=== PATIENT | male | born 1990 | race Caucasian/White ===

== ENCOUNTER 2016-09-05 16:18 | Emergency (ER) | payer OTHER ==
[2016-09-05 16:27] VITALS: O2SAT 98
[2016-09-05] MEDS ORDERED: Sodium Chloride 0.9% 1000 ML 1,000 ML IV STA (16:41)
[2016-09-05] MEDS ORDERED: Phenergan 25 MG INJ IV ONE (16:41)
[2016-09-05] MEDS ORDERED: Sodium Chloride 0.9% 1000 ML 1,000 ML ONE (16:42)
[2016-09-05] MEDS ORDERED: ANTIVERT 25 MG PO ONE (16:42)
[2016-09-05] MEDS ORDERED: Phenergan 25 MG INJ ONE (16:42)
[2016-09-05] MEDS ORDERED: Transderm Scop 1.5MG Patch TOP ONE (16:42)
[2016-09-05 16:48] LABS: BASOPHIL % 0.2 % (0.0-0.4); Eosinophil % 5.9 % (0.00-5.0); Granulocytes % 52.1 % (36.0-66.0); Lymphocytes % 32.8 % (24.0-44.0); Mean Cell Volume 88.8 fl (78-100); Mean Corpuscular Hemoglobin 30.2 pg (26-32); Mean Platelet Volume 10.3 fl (6-9.5); Platelet Count 249 K/mm3 (150-450); Red Cell Distribution Width 13.1 % (11.5-14.0); White Blood Count 6.3 K/mm3 (4.0-10.5)
--- NOTE | 2016-09-05 16:48 | ERPHSYRPT ---
- History of Present Illness Time Seen by Provider: 09/05/16 16:19 Source: patient Exam Limitations: no limitations Patient Subjective Stated Complaint: PT REPORTS VOMITING SINCE LAST NIGHT- DENIES DIARRHEA-DENIES FEVER-STATES THAT HE CAN NOT KEEP ANYTHING DOWN Triage Nursing Assessment: PT PALE WARM ET DRY-A & O X 3-ABD SOFT ET NONTENDER TO PLAP-RESP NONLABORED Physician History: patient awoke this morning with symptoms of acute vertigo associated with nausea and vomiting.no recent head trauma or travel; no flying or diving; no fever or chills; fullness in his ears but no ringing; emesis is clear; no diarrhea; hasn't been exposed to any known illnesses; no recent drug usage; symptoms exacerbated by moving his head horizontal or changing position Timing/Duration: today, hour(s) (6) Severity: severe Modifying Factors: Improves With: immobilization (helps), movement (aggravates) Associated Symptoms: nausea, vomiting, loss of appetite, other (acute vertigo) Allergies/Adverse Reactions: No Known Drug Allergies Allergy (Verified 09/05/16 16:27) Home Medications: No Home Meds 1 ea UD 09/05/16 [History] Hx Tetanus, Diphtheria Vaccination/Date Given: Yes Hx Influenza Vaccination/Date Given: No Hx Pneumococcal Vaccination/Date Given: No Immunizations Up to Date: Yes - Review of Systems Constitutional: No Symptoms Eyes: No Symptoms Ears, Nose, & Throat: Other (fullness in the ears), No Ear Pain, No Hearing Changes, No Tinnitus, No Epistaxis, No Throat Pain Respiratory: No Cough, No Dyspnea, No Wheezing Cardiac: No Chest Pain, No Palpitations, No Syncope Abdominal/Gastrointestinal: Nausea, Vomiting, No Abdominal Pain, No Diarrhea Genitourinary Symptoms: No Symptoms Musculoskeletal: No Symptoms Skin: No Symptoms Neurological: Dizziness, Vertigo, No Focal Weakness, No Headache, No Paralysis, No Parasthesia Psychological: No Symptoms Endocrine: No Symptoms Hematologic/Lymphatic: No Symptoms Immunological/Allergic: No Symptoms - Past Medical History Pertinent Past Medical History: Yes Neurological History: Migraines ENT History: No Pertinent History Cardiac History: No Pertinent History Respiratory History: Asthma Endocrine Medical History: No Pertinent History Musculoskeletal History: No Pertinent History GI Medical History: No Pertinent History - Past Surgical History Past Surgical History: No Neuro Surgical History: No Pertinent History Cardiac: No Pertinent History Respiratory: No Pertinent History Gastrointestinal: No Pertinent History Genitourinary: No Pertinent History Musculoskeletal: Orthopedic Surgery Male Surgical History: No Pertinent History Other Surgical History: WATER SAC REMOVED FROM RT LEG - Social History Smoking Status: Current every day smoker How long have you smoked: 11 Exposure to second hand smoke: Yes Alcohol Use: Socially Drug Use: none Patient Lives Alone: No Significant Family History: no pertinent family hx - Nursing Vital Signs Nursing Vital Signs: Initial Vital Signs Temperature 97.3 F Temperature Source Oral Pulse Rate 59 Respiratory Rate 20 Blood Pressure [Right Arm] 128/78 Pain Intensity 6 - Physical Exam General Appearance: moderate distress, alert, thin Eye Exam: PERRL/EOMI, eyes nml inspection, other (no nystagmus; fundi benign), No photophobia Ears, Nose, Throat Exam: normal ENT inspection, TMs normal, pharynx normal, moist mucous membranes Neck Exam: normal inspection, non-tender, supple, full range of motion, other ( symptoms of vertigo exacerbated by horizontal motion of the head), No meningismus, No carotid bruit, No JVD Respiratory Exam: normal breath sounds, lungs clear, airway intact, No chest tenderness, No respiratory distress Cardiovascular Exam: regular rate/rhythm, normal heart sounds, normal peripheral pulses, capillary refill <2 sec, No murmur Gastrointestinal/Abdomen Exam: soft, normal bowel sounds, No tenderness, No distention, No mass, No guarding, No rebound, No organomegaly Rectal Exam: deferred Back Exam: normal inspection, normal range of motion, No CVA tenderness Extremity Exam: normal inspection, normal range of motion, No ronny's sign, No pedal edema Neurologic Exam: alert, oriented x 3, cooperative, 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, normal mood/affect, nml cerebellar function, nml station & gait Skin Exam: normal color, warm, dry, No rash SpO2 Interpretation: normal SpO2: 98 Oxygen Delivery: Room Air - Course Nursing assessment & vital signs reviewed: Yes Ordered Tests: Active Orders 24 hr Category Date Time Status IV Insertion STAT Care 09/05/16 16:41 Active NPO (ED) STAT Care 09/05/16 16:41 Active Re-Check Vital Signs STAT Care 09/05/16 16:41 Active BMP Stat Lab 09/05/16 16:30 Completed CBC W DIFF Stat Lab 09/05/16 16:30 Completed Medication Summary Generic Name Dose Route Start Last Admin Trade Name Mesfin PRN Reason Stop Dose Admin Sodium Chloride 1,000 mls @ 999 mls/hr 09/05/16 16:41 09/05/16 16:47 Sodium Chloride 0.9% 1000 Ml IV 09/05/16 17:41 999 mls/hr .Q1H1M STA Administration Discontinued Medications Generic Name Dose Route Start Last Admin Trade Name Mesfin PRN Reason Stop Dose Admin Sodium Chloride Confirm 09/05/16 16:42 Sodium Chloride 0.9% 1000 Ml Administered 09/05/16 16:43 Dose 1,000 mls @ ud .ROUTE .STK-MED ONE Meclizine HCl 25 mg 09/05/16 16:42 09/05/16 16:57 Antivert 25 Mg PO 09/05/16 16:43 25 mg STAT ONE Administration Meclizine HCl Confirm 09/05/16 16:56 Antivert 25 Mg Administered 09/05/16 16:57 Dose 25 mg .ROUTE .STK-MED ONE Promethazine HCl 12.5 mg 09/05/16 16:41 09/05/16 16:47 Phenergan 25 Mg Inj IV 09/05/16 16:42 12.5 mg STAT ONE Administration Promethazine HCl Confirm 09/05/16 16:42 Phenergan 25 Mg Inj Administered 09/05/16 16:43 Dose 25 mg .ROUTE .STK-MED ONE Scopolamine HBr 1.5 mg 09/05/16 16:42 09/05/16 16:47 Transderm Scop 1.5mg Patch TOP 09/05/16 16:43 1.5 mg STAT ONE Administration Lab/Rad Data: Laboratory Result Diagrams 09/05/16 16:30 09/05/16 16:30 Laboratory Results 09/05/16 09/05/16 Range/Units 16:30 16:30 WBC 6.3 (4.0-10.5) K/mm3 RBC 4.80 (4.1-5.6) M/mm3 Hgb 14.5 (12.5-18.0) gm/dl Hct 42.6 (42-50) % MCV 88.8 (78-100) fl MCH 30.2 (26-32) pg MCHC 34.0 (32-36) g/dl RDW 13.1 (11.5-14.0) % Plt Count 249 (150-450) K/mm3 MPV 10.3 H (6-9.5) fl Gran % 52.1 (36.0-66.0) % Lymphocytes % 32.8 (24.0-44.0) % Monocytes % 9.0 (0.0-12.0) % Eosinophils % 5.9 H (0.00-5.0) % Basophils % 0.2 (0.0-0.4) % Basophils # 0.01 (0-0.4) Sodium 140 (136-145) mEq/L Potassium 3.7 (3.5-5.1) mEq/L Chloride 103 (98-107) mEq/L Carbon Dioxide 25.1 (21-32) mEq/L Anion Gap 15.8 H (5-15) MEQ/L BUN 11 (9-20) mg/dL Creatinine 1.15 (0.55-1.30) mg/dl Estimated GFR > 60 ML/MIN Glucose 102 (70-110) MG/DL Calcium 9.0 (8.5-10.1) mg/dL reviewed - Progress Progress: improved (after meds), re-examined (After IV fluids and medications) Progress Note: 09/05/16 16:48 IV started, meds given; labs drawn; will push fluids and recheck 09/05/16 17:07 rechecked adn N&V resolved; vertigo improving; able to take PO meds and fluids and keep down; cbc wnl; will monitor; continue IV fluids and recheck 09/05/16 17:20 patient rechecked and sleeping; easily aroused and now able to sit up and move head rapidly horizontally without symptoms; he has had 500 cc IV fluids; will continue IV fluids and recheck 09/05/16 17:33 patient continues to do well; treatment plan and instructions given; Counseled pt/family regarding: lab results, diagnosis, need for follow-up - Departure Time of Disposition: 17:45 Departure Disposition: Home Clinical Impression: Acute onset of vertigo with vomiting and inability to stand Condition: Stable Critical Care Time: No Referrals: DOCTOR,NO FAMILY [NON-STAFF PHY W/O PRIVILEGES] - Instructions: Vertigo Additional Instructions: rest; wear TDS patch behind ear for three (3) days; take antivert as needed; avoid sudden movements; encourage fluid hydration Follow-up with family doctor as directed. Call for appointment. Return if any problems. If you smoke please stop. Call or follow up with your family doctor for assistance if you need it to stop. Please wear your seatbelt when driving. Have a nice day. Thank you for allowing us to participate in your care today. :o) Dr David Reddy Prescriptions: Meclizine HCl 25 mg [Antivert 25 mg] 25 mg PO Q8H PRN PRN #14 tablet PRN Reason: Dizziness Ondansetron [Zofran Odt] 4 mg PO Q6-8HPRN PRN #10 tab.rapdis PRN Reason: Nausea
[2016-09-05] MEDS ORDERED: ANTIVERT 25 MG ONE (16:56)
[2016-09-05 17:11] VITALS: BP 128/78; PULSE 59
[2016-09-05 17:11] LABS: ANION GAP 15.8 MEQ/L (5-15); BLOOD UREA NITROGEN 11 mg/dL (9-20); CHLORIDE 103 mEq/L (98-107); Carbon Dioxide 25.1 mEq/L (21-32); Glucose 102 MG/DL (70-110); Potassium 3.7 mEq/L (3.5-5.1); SODIUM 140 mEq/L (136-145)
== END 2016-09-05 17:55 | disposition home or self-care (01) ==
LOC: ED 16:18
DX: R42 Dizziness and giddiness (principal); R11.2 Nausea with vomiting, unspecified; R26.89 Other abnormalities of gait and mobility
CPT/HCPCS: 36000; 36415; 80048; 85025; 96360; 96374; 99283; 99284; J2550

== ENCOUNTER 2017-10-21 15:22 | Emergency (ER) | payer SELFPAY ==
[2017-10-21] MEDS ORDERED: Sodium Chloride 0.9% 1000 ML 1,000 ML IV STA (15:38)
[2017-10-21] MEDS ORDERED: DUONEB 0.5-3 MG/3 ml Neb IH ONE ×2 (15:38→16:07)
[2017-10-21] MEDS ORDERED: TORAdol 30 mg Injection IV ONE (15:39)
--- NOTE | 2017-10-21 15:43 | ERPHSYRPT ---
- History of Present Illness Time Seen by Provider: 10/21/17 15:40 Source: patient Patient Subjective Stated Complaint: pt reports sore throat all over body aches unknown fever cough since thursday-states that he has been taking thera flu since thursday Triage Nursing Assessment: pt pink warm and [id number] easy and nonlabored- nasal drainage noted during triage-speaking in complete sentences with ease-no sob noted with ambulation Physician History: mild diffuse aches and fatigue since Thursday, nonproductive cough, no fever, no lethargy, speech fluent Allergies/Adverse Reactions: No Known Drug Allergies Allergy (Verified 10/21/17 15:36) Home Medications: No Home Meds [No Home Meds] 1 ea UD 09/05/16 [History] Hx Tetanus, Diphtheria Vaccination/Date Given: Yes Hx Influenza Vaccination/Date Given: No Hx Pneumococcal Vaccination/Date Given: No Immunizations Up to Date: Yes - Review of Systems Constitutional: Fatigue, Malaise, No Fever, No Lethargy Eyes: No Vision Changes Ears, Nose, & Throat: Throat Pain Respiratory: Cough, No Cyanosis, No Dyspnea, No Stridor, No Wheezing Cardiac: No Chest Pain Abdominal/Gastrointestinal: No Symptoms Musculoskeletal: No Back Pain, No Neck Pain Skin: No Rash, No Dryness - Past Medical History Pertinent Past Medical History: Yes Neurological History: Migraines ENT History: No Pertinent History Cardiac History: No Pertinent History Respiratory History: Asthma Endocrine Medical History: No Pertinent History Musculoskeletal History: No Pertinent History GI Medical History: No Pertinent History - Past Surgical History Past Surgical History: No Neuro Surgical History: No Pertinent History Cardiac: No Pertinent History Respiratory: No Pertinent History Gastrointestinal: No Pertinent History Genitourinary: No Pertinent History Musculoskeletal: Orthopedic Surgery Male Surgical History: No Pertinent History Other Surgical History: WATER SAC REMOVED FROM RT LEG - Social History Smoking Status: Current every day smoker How long have you smoked: 11 Exposure to second hand smoke: Yes Alcohol Use: Socially Drug Use: none Patient Lives Alone: No Significant Family History: no pertinent family hx - Nursing Vital Signs Nursing Vital Signs: Initial Vital Signs Temperature 98.1 F 10/21/17 15:29 Pulse Rate 94 H 10/21/17 15:29 Respiratory Rate 16 10/21/17 15:29 Blood Pressure 137/96 10/21/17 15:29 O2 Sat by Pulse Oximetry 99 03/21/18 15:29 Pain Scale Pain Intensity 3 - Physical Exam General Appearance: no apparent distress Eye Exam: PERRL/EOMI Ears, Nose, Throat Exam: pharyngeal erythema Neck Exam: normal inspection, other (no stridor, no peritonsillar mass) Respiratory Exam: normal breath sounds, No respiratory distress Cardiovascular/Chest Exam: regular rate/rhythm Abdominal/Gastrointestinal Exam: soft Extremity Exam: normal range of motion Neurologic Exam: alert, oriented x 3, cooperative Skin Exam: warm, dry SpO2 Interpretation: normal SpO2: 99 Oxygen Delivery: Room Air - Course Nursing assessment & vital signs reviewed: Yes Ordered Tests: Active Orders 24 hr Category Date Time Status IV Insertion STAT Care 10/21/17 15:38 Active Respiratory Nebulizer STAT RT 10/21/17 15:39 Completed Medication Summary Discontinued Medications Generic Name Dose Route Start Last Admin Trade Name Freq PRN Reason Stop Dose Admin Albuterol/Ipratropium 3 ml 10/21/17 15:38 10/21/17 16:15 Duoneb 0.5-3 Mg/3 Ml Neb IH 10/21/17 15:39 3 ml STAT ONE Administration Albuterol/Ipratropium Confirm 10/21/17 16:07 Duoneb 0.5-3 Mg/3 Ml Neb Administered 10/21/17 16:08 Dose 3 ml IH .STK-MED ONE Sodium Chloride 1,000 mls @ 999 mls/hr 10/21/17 15:38 10/21/17 16:05 Sodium Chloride 0.9% 1000 Ml IV 10/21/17 16:38 999 mls/hr .Q1H1M STA Administration Sodium Chloride Confirm 10/21/17 16:03 Sodium Chloride 0.9% 1000 Ml Administered 10/21/17 16:04 Dose 1,000 mls @ ud .ROUTE .STK-MED ONE Ketorolac Tromethamine 30 mg 10/21/17 15:39 10/21/17 16:05 Toradol 30 Mg Injection IV 10/21/17 15:40 30 mg STAT ONE Administration Ketorolac Tromethamine Confirm 10/21/17 16:03 Toradol 30 Mg Injection Administered 10/21/17 16:04 Dose 30 mg .ROUTE .STK-MED ONE - Progress Progress: improved Air Movement: good Progress Note: 10/21/17 16:39 zpak, see your doctor, or workers compensation attorney Dr Huang, return if worse, motrin, oral fluids , rest, proventil inhaler Discussed with : Delbert Counseled pt/family regarding: diagnosis, need for follow-up - Departure Time of Disposition: 16:40 Departure Disposition: Home Clinical Impression: Bronchitis Condition: Stable Critical Care Time: No Referrals: GARRY HUANG MD [Primary Care Provider] - Instructions: Acute Bronchitis Prescriptions: Albuterol Sulfate [Albuterol Sulfate Hfa] 8.5 gm IH Q6H PRN PRN #1 [id number] PRN Reason: Shortness Of Breath Azithromycin 250 mg [Zithromax 250 MG TABLET] 250 mg PO ZPACK #6 tablet
[2017-10-21] MEDS ORDERED: Sodium Chloride 0.9% 1000 ML 1,000 ML ONE (16:03)
[2017-10-21] MEDS ORDERED: TORAdol 30 mg Injection ONE (16:03)
[2017-10-21 16:42] VITALS: BP 128/83; PULSE 90
[2017-10-21 16:44] VITALS: O2SAT 99
== END 2017-10-21 16:59 | disposition home or self-care (01) ==
LOC: ED 15:22
DX: J40 Bronchitis, not specified as acute or chronic (principal)
CPT/HCPCS: 36000; 94150; 94640; 96360; 96374; 99284; J1885; A9270-GY

== ENCOUNTER 2021-05-19 20:57 | Emergency (ER) | payer OTHER ==
[2021-05-19] MEDS ORDERED: XYLOCAINE VISCOUS 2% 20 ML CUP PO ONE (21:36)
[2021-05-19] MEDS ORDERED: AMOXIL 500 MG PO ONE (21:37)
[2021-05-19] MEDS ORDERED: Naprosyn 500 MG PO ONE (21:38)
[2021-05-19 21:45] VITALS: O2SAT 98
--- NOTE | 2021-05-19 21:45 | ERPHSYRPT ---
- History of Present Illness Time Seen by Provider: 05/19/21 21:40 Source: patient Exam Limitations: no limitations Physician History: Patient is a 30-year-old white male who presents with a complaint of dental pain on and off for a year from a left mandibular molar which is decayed to the gumline and right maxillary molar which is partially missing. He has been unable to eat because of pain and complains of swelling in both jaws. He does not have a dental appointment. Timing/Duration: intermittent Severity: severe ENT Location: mouth, dental Prearrival Treatment: no prearrival treatment Modifying Factors: Improves With: nothing Associated Symptoms: facial pain/swelling, jaw pain, tooth pain Allergies/Adverse Reactions: No Known Drug Allergies Allergy (Verified 05/19/21 21:35) Hx Tetanus, Diphtheria Vaccination/Date Given: Yes Hx Influenza Vaccination/Date Given: No Hx Pneumococcal Vaccination/Date Given: No - Review of Systems Constitutional: No Fever, No Chills Eyes: No Symptoms Ears, Nose, & Throat: No Symptoms, Mouth Swelling, Loose Teeth Respiratory: No Cough, No Dyspnea Cardiac: No Chest Pain, No Edema, No Syncope Abdominal/Gastrointestinal: No Abdominal Pain, No Nausea, No Vomiting, No Diarrhea Genitourinary Symptoms: No Dysuria Musculoskeletal: No Back Pain, No Neck Pain Skin: No Rash Neurological: No Dizziness, No Focal Weakness, No Sensory Changes Psychological: No Symptoms Endocrine: No Symptoms All Other Systems: Reviewed and Negative - Past Medical History Pertinent Past Medical History: Yes Neurological History: Migraines ENT History: No Pertinent History Cardiac History: No Pertinent History Respiratory History: Asthma Endocrine Medical History: No Pertinent History Musculoskeletal History: No Pertinent History GI Medical History: No Pertinent History - Past Surgical History Past Surgical History: No Neuro Surgical History: No Pertinent History Cardiac: No Pertinent History Respiratory: No Pertinent History Gastrointestinal: No Pertinent History Genitourinary: No Pertinent History Musculoskeletal: Orthopedic Surgery Male Surgical History: No Pertinent History Other Surgical History: WATER SAC REMOVED FROM RT LEG - Social History Smoking Status: Current every day smoker How long have you smoked: 11 Exposure to second hand smoke: Yes Alcohol Use: Socially Drug Use: none Patient Lives Alone: No Significant Family History: no pertinent family hx - Physical Exam General Appearance: mild distress Eye Exam: bilateral eye: PERRL, EOMI Throat Exam: dental tenderness (Patient has carious teeth 2 of which seem to be bothering him at present with both being carious) Neck Exam: supple Cardiovascular/Respiratory Exam: normal breath sounds, no respiratory distress Neurologic Exam: alert, oriented x 3, cooperative Skin Exam: normal color, warm, dry SpO2 Interpretation: normal O2 Delivery: Room Air - Course Nursing assessment & vital signs reviewed: Yes Ordered Tests: Medication Summary Discontinued Medications Generic Name Dose Route Start Last Admin Trade Name Freq PRN Reason Stop Dose Admin Amoxicillin 500 mg 05/19/21 21:37 Amoxicillin Trihydrate 500 Mg Capsule PO 05/19/21 21:38 STAT ONE Lidocaine HCl 20 ml 05/19/21 21:36 Lidocaine Hcl 20 Ml Cup PO 05/19/21 21:37 STAT ONE - Progress Progress: unchanged - Departure Departure Disposition: Home Clinical Impression: Pain, dental Condition: Stable Critical Care Time: No Referrals: GARRY HUANG MD [Primary Care Provider] - Instructions: Tooth Decay, Adult (DC), Dental Pain (DC), Tooth Abscess (DC) Prescriptions: Amoxicillin 500 mg PO TID 10 Days #30 tablet Diclofenac Sodium 50 mg [Voltaren 50 mg] 50 mg PO Q8H 5 Days #15
[2021-05-19] MEDS ORDERED: XYLOCAINE HCl Viscous ONE (21:47)
[2021-05-19] MEDS ORDERED: AMOXIL 500 MG ONE (21:49)
[2021-05-19 22:05] VITALS: BP 133/88; PULSE 60
== END 2021-05-19 22:03 | disposition home or self-care (01) ==
LOC: ED 20:57
DX: K08.89 Other specified disorders of teeth and supporting structures (principal)
CPT/HCPCS: 99283; A9270-GY

== ENCOUNTER 2024-08-05 18:25 | Emergency (ER) | payer OTHER ==
--- NOTE | 2024-08-05 18:27 | ERPHSYRPT ---
- History of Present Illness Time Seen by Provider: 08/05/24 18:27 Source: patient Exam Limitations: no limitations Physician History: This is a 33-year-old white male patient who arrives by private vehicle secondary to cough and 2 episodes of nosebleed in the last 4 days. He also has a headache, sore throat and bodyaches. His cough has been nonproductive. The nosebleeds have been mild. Their onset has been sudden in onset and they spontaneously stopped. Patient has no known drug allergies and he takes no medications chronically. Patient has a history of migraine headaches and asthma. He is a daily smoker of tobacco cigarettes. Timing/Duration: day(s) (4) Cough Quality/Degree: mild, dry cough Possible Cause: no prior episodes Modifying Factors: Improves With: coughing Associated Symptoms: cough, headache, muscle aches, nasal congestion, sore throat, No shortness of breath Allergies/Adverse Reactions: No Known Drug Allergies Allergy (Verified 08/05/24 18:30) Hx Tetanus, Diphtheria Vaccination/Date Given: Yes Hx Influenza Vaccination/Date Given: No Hx Pneumococcal Vaccination/Date Given: No Travel Risk - International Travel Have you traveled outside of the country in past 3 weeks: No - Emerging Infectious Disease Are you exhibiting symptoms associated with any current EIDs: Yes Symptoms: Cough: New Onset, Headaches/Body Aches/, Other (Please Comment) (Sore throat) - Review of Systems Constitutional: No Symptoms Eyes: No Symptoms Ears, Nose, & Throat: Throat Pain Respiratory: Cough Cardiac: No Symptoms Abdominal/Gastrointestinal: No Symptoms Genitourinary Symptoms: No Symptoms Musculoskeletal: Arthralgias, Myalgias Skin: No Symptoms Neurological: No Symptoms Psychological: No Symptoms Endocrine: No Symptoms Hematologic/Lymphatic: No Symptoms Immunological/Allergic: No Symptoms All Other Systems: Reviewed and Negative - Past Medical History Pertinent Past Medical History: Yes Neurological History: Migraines ENT History: No Pertinent History Cardiac History: No Pertinent History Respiratory History: Asthma Endocrine Medical History: No Pertinent History Musculoskeletal History: No Pertinent History GI Medical History: No Pertinent History Other Medical History: fatty liver - Past Surgical History Past Surgical History: No Neuro Surgical History: No Pertinent History Cardiac: No Pertinent History Respiratory: No Pertinent History Gastrointestinal: No Pertinent History Genitourinary: No Pertinent History Musculoskeletal: Orthopedic Surgery Male Surgical History: No Pertinent History Other Surgical History: WATER SAC REMOVED FROM RT LEG Significant Family History: no pertinent family hx - Social History Smoking Status: Current every day smoker How long have you smoked: 11 Exposure to second hand smoke: Yes Alcohol Use: Socially Drug Use: none Patient Lives Alone: No - Nursing Vital Signs Nursing Vital Signs: Initial Vital Signs Pulse Rate 82 08/05/24 18:33 Respiratory Rate 20 08/05/24 18:33 Blood Pressure 165/88 08/05/24 18:33 O2 Sat by Pulse Oximetry 100 08/05/24 18:33 Pain Scale Pain Intensity 4 - Physical Exam General Appearance: no apparent distress, alert, anxiety Eye Exam: PERRL/EOMI, eyes nml inspection Ears, Nose, Throat Exam: normal ENT inspection, moist mucous membranes Neck Exam: normal inspection, non-tender, supple, full range of motion Respiratory Exam: normal breath sounds, lungs clear, airway intact, No chest tenderness, No respiratory distress Cardiovascular Exam: regular rate/rhythm, normal heart sounds, normal peripheral pulses Gastrointestinal/Abdomen Exam: soft, normal bowel sounds, tenderness Rectal Exam: not done Back Exam: normal inspection, normal range of motion, No CVA tenderness, No vert ebral tenderness Extremity Exam: normal inspection, normal range of motion, pelvis stable Neurologic Exam: alert, oriented x 3, cooperative, oil change technician II-XII nml as tested, normal mood/affect, nml cerebellar function, nml station & gait, sensation nml Skin Exam: normal color, warm, dry Lymphatic Exam: No adenopathy SpO2 Interpretation: normal O2 Delivery: Room Air - Course Nursing assessment & vital signs reviewed: Yes Ordered Tests: Active Orders 24 hr Category Date Time Status CHEST 1 VIEW (PORTABLE) Stat Exams 08/05/24 18:47 Taken Lab/Rad Data: Laboratory Results 08/05/24 08/05/24 Range/Units 18:50 18:50 Influenza Type A Ag NEGATIVE (NEGATIVE) Influenza Type B Ag NEGATIVE (NEGATIVE) RSV (PCR) NEGATIVE (NEGATIVE) SARS-CoV-2 (PCR) NEGATIVE (NEGATIVE) Group A Strep Antibody NOT DETECTED (NEGATIVE) - Progress Progress: unchanged Air Movement: good Progress Note: 08/05/24 19:52 My medical decision making and the assignment of low complexity to this patient's medical issue today is based on review of the patient's past medical history, review of the patient's medication list, reviewed patient drug allergy list, history present illness and physical findings on examination. The workup in this patient includes chest x-ray, viral swabs and group A strep test. Differential diagnosis includes was not limited to strep pharyngitis, viral illness, pneumonia, upper respiratory infection. Blood Culture(s) Obtained: No Antibiotics given: Yes Counseled pt/family regarding: lab results, diagnosis, need for follow-up, rad results Medical Desision Making - Diagnostic Testing Diagnostic test were ordered, analyzed, and reviewed by me: Yes Radiological Interpretation: Interpreted by me, Teleradiologist Report - Risk of complications The pt has a mod risk of morbidity or mortality based on: Need for prescription drug management - Departure Departure Disposition: Home Clinical Impression: Upper respiratory infection, Pharyngitis Condition: Stable Critical Care Time: No Referrals: DOCTOR,NO FAMILY [Primary Care Provider] - Follow up/PCP as directed Additional Instructions: Drink plenty of clear liquids. Avoid exposure to any type of smoke. Take your medications as prescribed. Call your primary care provider on 08/08/2024, to make arrangements for follow-up appointment for further evaluation management. Prescriptions: Benzonatate 200 mg PO TID PRN #10 cap PRN Reason: Cough Prednisone 10 mg [Deltasone 10 mg] 10 mg PO TID #12 tablet Azithromycin 250 mg [Zithromax 250 MG TABLET] 250 mg PO ZPACK #6 tablet
[2024-08-05 18:41] VITALS: PULSE 82; RESP 20
[2024-08-05 19:32] LABS: INFLUENZA A NEGATIVE (NEGATIVE); INFLUENZA B NEGATIVE (NEGATIVE); RESPIRATORY SYNCTIAL VIRUS NEGATIVE (NEGATIVE); SARS-CoV-2 Xpert Express NEGATIVE (NEGATIVE)
[2024-08-05] MEDS ORDERED: DELTASONE 20 MG ONE (20:03)
[2024-08-05] MEDS ORDERED: Tessalon Perles 100 MG PO ONE ×2 (20:03→20:05)
[2024-08-05] MEDS ORDERED: Vibramycin 100 MG ONE (20:03)
[2024-08-05] MEDS: DELTASONE 20 MG PO ONE (20:04)
[2024-08-05] MEDS: Tessalon Perles 100 MG PO ONE (20:04)
[2024-08-05] MEDS: Vibramycin 100 MG PO ONE (20:04)
[2024-08-05 20:13] VITALS: BP 128/94; O2SAT 97
--- NOTE | 2024-08-06 08:43 | XRAY ---
Indication: Cough. Comparison: None Portable chest demonstrates normal heart, lungs, and bony thorax.
== END 2024-08-05 20:15 | disposition home or self-care (01) ==
LOC: ED 18:25
DX: J06.9 Acute upper respiratory infection, unspecified (principal); J02.9 Acute pharyngitis, unspecified; R51.9 Headache, unspecified; M79.10 Myalgia, unspecified site; Z79.52 Long term (current) use of systemic steroids; Z79.899 Other long term (current) drug therapy; Z72.0 Tobacco use
CPT/HCPCS: 0241U; 71045; 87651; 99285; 99283; A9270-GY

== ENCOUNTER 2025-05-14 15:35 | Emergency (ER) | payer OTHER ==
--- NOTE | 2025-05-14 15:49 | ERPHSYRPT ---
- History of Present Illness Time Seen by Provider: 05/14/25 15:49 Source: patient Exam Limitations: no limitations Patient Subjective Stated Complaint: co cough congestion for 5 days now, Triage Nursing Assessment: pt alert, walked in, resp easy, no cough, runny nose, moves all ext well, no edema noted Physician History: Patient presents to emergency room with a 5-day history of dry cough. He has a history of asthma but not using any inhalers. He reports some wheezing with the first 3 days of illness but has not since. No chest pain. No fevers. No congestion or purulent drainage. He does report sinus pressure without sinus tenderness. Timing/Duration: day(s) (5) Cough Quality/Degree: dry cough Allergies/Adverse Reactions: Penicillins Adverse Reaction (Verified 05/14/25 15:43) Hx Tetanus, Diphtheria Vaccination/Date Given: Yes Hx Influenza Vaccination/Date Given: No Hx Pneumococcal Vaccination/Date Given: No Immunizations Up to Date: Yes Travel Risk - International Travel Have you traveled outside of the country in past 3 weeks: No - Emerging Infectious Disease Are you exhibiting symptoms associated with any current EIDs: Yes Symptoms: Cough: New Onset - Review of Systems All Other Systems: Reviewed and Negative - Past Medical History Pertinent Past Medical History: Yes Neurological History: Migraines ENT History: No Pertinent History Cardiac History: No Pertinent History Respiratory History: Asthma Endocrine Medical History: No Pertinent History Musculoskeletal History: No Pertinent History GI Medical History: No Pertinent History Other Medical History: fatty liver - Past Surgical History Past Surgical History: No Neuro Surgical History: No Pertinent History Cardiac: No Pertinent History Respiratory: No Pertinent History Gastrointestinal: No Pertinent History Genitourinary: No Pertinent History Musculoskeletal: Orthopedic Surgery Male Surgical History: No Pertinent History Other Surgical History: WATER SAC REMOVED FROM RT LEG Significant Family History: no pertinent family hx - Social History Smoking Status: Current every day smoker How long have you smoked: 11 Exposure to second hand smoke: Yes Drug Use: none - Social Determinants of Health Will the patient participate in the screening: Yes Do you worry about a steady place to live?: No Do you have any problems with any of the following?: No known problems In the past 12 months,have you had to go without utilities?: No Transportation Issues: No Has anyone in your support network made you feel unsafe?: No Have you or anyone in your house had to go w/o enough food: No - Nursing Vital Signs Nursing Vital Signs: Initial Vital Signs Temperature 98.4 F 05/14/25 15:49 Pulse Rate 80 05/14/25 15:49 Respiratory Rate 18 05/14/25 15:49 Blood Pressure 153/84 05/14/25 15:49 O2 Sat by Pulse Oximetry 96 05/14/25 15:49 Pain Scale Pain Intensity 0 - Physical Exam General Appearance: no apparent distress Ears, Nose, Throat Exam: TM abnormal (R) (erythema, dull,no tenderness patient reports as chronic), No pharyngeal erythema Neck Exam: normal inspection, non-tender, supple, full range of motion Respiratory Exam: normal breath sounds, lungs clear, airway intact, No respiratory distress Cardiovascular Exam: regular rate/rhythm, normal heart sounds, capillary refill <2 sec, No edema Neurologic Exam: alert, oriented x 3, cooperative Skin Exam: normal color, warm, dry, No rash SpO2 Interpretation: normal O2 Delivery: Room Air - Course Nursing assessment & vital signs reviewed: Yes Ordered Tests: Active Orders 24 hr Category Date Time Status CHEST 1 VIEW (PORTABLE) Stat Exams 05/14/25 16:01 Taken Lab/Rad Data: Laboratory Results 05/14/25 Range/Units 15:55 Influenza Type A Ag NEGATIVE (NEGATIVE) Influenza Type B Ag NEGATIVE (NEGATIVE) RSV (PCR) NEGATIVE (NEGATIVE) SARS-CoV-2 (PCR) NEGATIVE (NEGATIVE) - Progress Progress: improved Air Movement: good Progress Note: This patient presents with acute cough. Presentation not consistent with acute bacterial pneumonia, influenza, asthma, transient airway hyperresponsiveness. Presentation not consistent with chronic causes of cough (including GERD, asthma, postnasal discharge, medication side effect, CHF, lung cancer or mass). Plan: COVID, Flu, RSV, CXR, supportive care, reassess 05/14/25 17:03 COVID, Flu, RSV neg, CXR unremarkable Azithro, Prednisone started for bronchitis. Sent refill Albuterol HFA. Advise fu with pcp, may need PFTs Blood Culture(s) Obtained: No Antibiotics given: Yes Counseled pt/family regarding: lab results, diagnosis, need for follow-up, rad results Medical Desision Making - Diagnostic Testing Diagnostic test were ordered, analyzed, and reviewed by me: Yes Radiological Interpretation: Interpreted by me - Risk of complications The pt has a mod risk of morbidity or mortality based on: Need for prescription drug management - Departure Departure Disposition: Home Clinical Impression: Dry cough, Bronchitis, Asthma Condition: Stable Critical Care Time: No Referrals: DENISE HEANO [Primary Care Provider, [facility]] - Follow up/PCP as directed Instructions: Cough, Adult (DC) Prescriptions: Albuterol Sulfate [Albuterol Sulfate Hfa] 8.5 gm IH [id number] PRN #1 inh PRN Reason: Cough Azithromycin 250 mg PO DAILY 4 Days #4 tablet predniSONE [Prednisone] 50 mg PO DAILY 4 Days #4 tablet
[2025-05-14 15:50] VITALS: RESP 18; TEMP 98.4
[2025-05-14 16:33] LABS: INFLUENZA A NEGATIVE (NEGATIVE); INFLUENZA B NEGATIVE (NEGATIVE); RESPIRATORY SYNCTIAL VIRUS NEGATIVE (NEGATIVE); SARS-CoV-2 Xpert Express NEGATIVE (NEGATIVE)
[2025-05-14] MEDS ORDERED: Zithromax 250 MG TABLET ONE (16:57)
[2025-05-14] MEDS ORDERED: DELTASONE 20 MG ONE ×2 (16:57→16:59)
[2025-05-14] MEDS: DELTASONE 20 MG PO ONE (16:58)
[2025-05-14] MEDS ORDERED: Ventolin Hfa MDI IH ONE (16:58)
[2025-05-14] MEDS: Zithromax 250 MG TABLET PO ONE (16:58)
[2025-05-14] MEDS: Ventolin Hfa MDI IH PRN (17:07)
[2025-05-14 17:09] VITALS: PULSE 77; O2SAT 99
[2025-05-14 17:14] VITALS: BP 130/92
--- NOTE | 2025-05-14 22:49 | XRAY ---
Indication: Cough. Comparison: August 05, 2024 Portable chest again demonstrates normal heart, lungs, and bony thorax.
== END 2025-05-14 17:17 | disposition home or self-care (01) ==
LOC: ED 15:35
DX: J45.909 Unspecified asthma, uncomplicated (principal); R05.1 Acute cough; Z79.52 Long term (current) use of systemic steroids; Z79.899 Other long term (current) drug therapy; Z72.0 Tobacco use